=== PATIENT | male | born 1990 | race Caucasian/White ===

== ENCOUNTER 2022-09-02 22:41 | Inpatient (IN) | payer BC, OTHER ==
[~2022-09-02] VITALS: Ht 182.9 cm; Wt 85.3 kg
[2022-09-03 00:40] LABS: Eosinophils # (auto) 0 10 ^3/uL (0-0.8); Eosinophils % (auto) 0.2 % (0.0-7.0); Lymphocytes # (auto) 2.7 10 ^3/uL (0.4-5.4); Monocytes # (auto) 0.5 10 ^3/uL (0-1.3); Nucleated Red Blood Cells % 0.1 %
[2022-09-03 00:42] LABS: Basophils # (auto) 0.1 10 ^3/uL (0-0.2); Basophils % (auto) 0.4 % (0.0-2.0); Hemoglobin 16.1 g/dL (13.5-17.5); Lymphocytes % (auto) 14.3 % (10.0-50.0); Mean Corpuscular Hemoglobin 29.9 pg (28.0-32.0); Mean Corpuscular Volume 106.7 fL (80.0-100.0); Monocytes % (auto) 2.4 % (0.0-12.0); Neutrophils # (auto) 15.6 10 ^3/uL (1.6-8.6); Neutrophils % (auto) 82.7 % (37.0-80.0); Red Blood Cells 5.39 10^6/uL (4.5-5.90); Red Cell Distribution Width 16.2 % (11.8-14.3); White Blood Cell 18.8 10^3/uL (4.4-10.8)
[2022-09-03 00:46] LABS: Hematocrit 57.6 % (41.0-53.0)
[2022-09-03 01:00] LABS: Albumin 4.1 g/dL (3.4-5.0); Calcium 9.5 mg/dL (8.5-10.1); Magnesium 2.8 mg/dL (1.6-2.6)
[2022-09-03 01:02] LABS: Bilirubin, Total 0.5 mg/dL (0.2-1.0); Total Protein 8.7 g/dL (6.4-8.2)
[2022-09-03 01:10] LABS: BUN/Creatinine Ratio 5.6; Potassium 6.1 mmol/L (3.5-5.1)
[2022-09-03] MEDS ORDERED: SODIUM CHLORIDE 0.9% 2,450 ML IV ONE (01:15)
[2022-09-03] MEDS ORDERED: SODIUM CHLORIDE 0.9% 1,000 ML IV ONE (01:15)
[2022-09-03] MEDS ORDERED: DEXTROSE (50%) 50ML SYRG IV PRN ×2 (01:15→01:45)
[2022-09-03] MEDS ORDERED: PHENYLEPHRINE IV 250 ML IV ONE (01:15)
[2022-09-03] MEDS ORDERED: INSULIN LANTUS (GLARGINE) 1 /0.01ml (100units/ml) SC ONE (01:15)
[2022-09-03] MEDS ORDERED: InsuLIN R (HUMAN) 100 UNITS in SODIUM CHL 0.9% 99 ML IV SCH (01:15)
[2022-09-03] MEDS ORDERED: InsuLIN REG 1unit/0.01ml Soln (100units/ml) ONE ×2 (01:28→01:42)
[2022-09-03] MEDS ORDERED: cefTRIAXone 1GM/50ML D5W 50 ML IV ONE (01:30)
[2022-09-03 01:35] LABS: Lactic Acid w/Reflex 7.5 mmol/L (0.4-2.0)
[2022-09-03] MEDS ORDERED: InsuLIN REG 1unit/0.01ml Soln (100units/ml) IV ONE (01:45)
[2022-09-03] MEDS: InsuLIN R (HUMAN) 100 UNITS in SODIUM CHL 0.9% 99 ML IV SCH ×3 (01:46→03:35)
[2022-09-03] MEDS ORDERED: SODIUM BICARBONATE 8.4 % INJ 50ML VIAL IV ONE ×3 (01:56→03:01)
[2022-09-03] MEDS ORDERED: SODIUM BICARBONATE 50ML VIAL 50 ML in SOD CHL 0.45% 1,000 ML IV ONE (02:00)
[2022-09-03] MEDS: SODIUM CHLORIDE 0.9% 1,000 ML IV SCH ×4 (02:15→03:45)
[2022-09-03] MEDS: ACCU-CHEK COMFORT CURVE STRIP VI SCH ×17 (03:00→22:28)
[2022-09-03] MEDS ORDERED: NITROGLYCERIN 0.4 MG SL TAB SL PRN (03:45)
[2022-09-03] MEDS ORDERED: MORPHINE SULFATE INJ 2 MG/ml SYRG IV PRN ×2 (03:45)
[2022-09-03 03:47] LABS: Albumin 3.2 g/dL (3.4-5.0); Calcium 8.2 mg/dL (8.5-10.1); Potassium 5.5 mmol/L (3.5-5.1)
[2022-09-03 03:50] LABS: Bilirubin, Total 0.5 mg/dL (0.2-1.0); Total Protein 6.8 g/dL (6.4-8.2)
[2022-09-03 03:59] LABS: BUN/Creatinine Ratio 7.5
[2022-09-03 04:38] LABS: Urine Bacteria FEW /hpf (None Seen); Urine Blood TRACE /uL (Negative); Urine Hyaline Cast FEW /lpf (0 - 2); Urine Mucus FEW (None Seen); Urine Specific Gravity 1.021 (1.001-1.035); Urine WBC 6 /hpf (0 - 3)
[2022-09-03 04:45] LABS: Alcohol, Urine < 3.0 mg/dL (0-10); Amphetamine Screen, Urine NEGATIVE (NEGATIVE); Barbiturate Scree,Urine NEGATIVE (NEGATIVE); Benzodiazephine Screen, Urine NEGATIVE (NEGATIVE); Cannabinoid Screen, Urine NEGATIVE (NEGATIVE); Cocaine Screen, Urine NEGATIVE (NEGATIVE); Opiate Scree,Urine NEGATIVE (NEGATIVE); Phencyclidine Screen, Urine NEGATIVE (NEGATIVE)
[2022-09-03] MEDS ORDERED: SODIUM CHLORIDE 0.9% 1,000 ML IV SCH ×4 (05:15→07:45)
[2022-09-03] MEDS: SODIUM BICARBONATE 50ML VIAL 100 ML in SOD CHL 0.45% 1,000 ML IV SCH ×2 (05:45→20:06)
[2022-09-03 07:57] LABS: BUN/Creatinine Ratio 8.6; Calcium 9.2 mg/dL (8.5-10.1); Potassium 4.4 mmol/L (3.5-5.1)
[2022-09-03] MEDS: D5W/SOD CHL 0.45% 1,000 ML IV SCH ×2 (10:19→20:06)
[2022-09-03] MEDS: PANTOPRAZOLE 40 MG/10 ML VIAL INJ IV SCH (11:27)
[2022-09-03 13:05] LABS: Hematocrit 44.5 % (41.0-53.0); Hemoglobin 14.1 g/dL (13.5-17.5); Mean Corpuscular Hgb Conc. 31.7 g/dL (32.0-36.0); Mean Corpuscular Volume 94.7 fL (80.0-100.0); Red Blood Cells 4.69 10^6/uL (4.5-5.90); Red Cell Distribution Width 13.9 % (11.8-14.3); White Blood Cell 22.5 10^3/uL (4.4-10.8)
[2022-09-03 13:11] LABS: Basophils % (manual) 0 (0.0-2.0); Blast Cells 0; Eosinophils % (manual) 0 (0-7); Metamyelocytes % 0; Myelocytes % 0; Promyelocytes % 0; Reactive Lymphocytes 0
[2022-09-03 13:31] LABS: BUN/Creatinine Ratio 9.7; Calcium 8.9 mg/dL (8.5-10.1); Phosphorus 2.3 mg/dL (2.5-4.90); Potassium 3.9 mmol/L (3.5-5.1)
[2022-09-03 14:16] LABS: Band Neutrophils % (manual) 19; Lymphocytes % (manual) 4 (10.0-50.0); Monocytes % (manual) 3 (0-12)
[2022-09-03] MEDS ORDERED: POTASSIUM PHOSPHATE 22 MEQ in SODIUM CHL 0.9% 100 ML IV ONE (16:15)
[2022-09-03] MEDS: ONDANSETRON HCL 4 MG/2 ML VIAL IV PRN (18:56)
[2022-09-03 20:00] LABS: BUN/Creatinine Ratio 10.3; Calcium 9.1 mg/dL (8.5-10.1); Potassium 3.2 mmol/L (3.5-5.1)
[2022-09-04] MEDS: ACCU-CHEK COMFORT CURVE STRIP VI SCH ×9 (00:16→23:34)
[2022-09-04] MEDS: ONDANSETRON HCL 4 MG/2 ML VIAL IV PRN ×2 (03:47→08:28)
[2022-09-04] MEDS ORDERED: DEXTROSE (50%) 50ML SYRG IV PRN (05:45)
[2022-09-04] MEDS ORDERED: SODIUM CHLORIDE 0.9% 500 ML IV ONE (05:45)
[2022-09-04 07:10] LABS: Calcium 8.8 mg/dL (8.5-10.1); Potassium 3.3 mmol/L (3.5-5.1)
[2022-09-04 07:14] LABS: BUN/Creatinine Ratio 10.9; Bilirubin, Total 0.4 mg/dL (0.2-1.0); Total Protein 6.3 g/dL (6.4-8.2)
[2022-09-04 07:24] LABS: Basophils # (auto) 0.1 10 ^3/uL (0-0.2); Basophils % (auto) 0.5 % (0.0-2.0); Eosinophils # (auto) 0 10 ^3/uL (0-0.8); Eosinophils % (auto) 0.1 % (0.0-7.0); Hematocrit 38.4 % (41.0-53.0); Hemoglobin 13.1 g/dL (13.5-17.5); Lymphocytes # (auto) 1.7 10 ^3/uL (0.4-5.4); Lymphocytes % (auto) 13.1 % (10.0-50.0); Mean Corpuscular Hemoglobin 31.7 pg (28.0-32.0); Mean Corpuscular Volume 93.3 fL (80.0-100.0); Monocytes # (auto) 0.7 10 ^3/uL (0-1.3); Monocytes % (auto) 5.3 % (0.0-12.0); Neutrophils # (auto) 10.4 10 ^3/uL (1.6-8.6); Nucleated Red Blood Cells % 0.1 %; Red Blood Cells 4.11 10^6/uL (4.5-5.90); Red Cell Distribution Width 13.7 % (11.8-14.3); White Blood Cell 12.9 10^3/uL (4.4-10.8)
[2022-09-04] MEDS: SODIUM BICARBONATE 50ML VIAL 100 ML in SOD CHL 0.45% 1,000 ML IV SCH (07:54)
[2022-09-04] MEDS: InsuLIN REG 1unit/0.01ml Soln (100units/ml) SC SCH ×5 (08:10→23:34)
[2022-09-04] MEDS: INSULIN LANTUS (GLARGINE) 1 /0.01ml (100units/ml) SC SCH (10:07)
[2022-09-04] MEDS: PANTOPRAZOLE 40 MG/10 ML VIAL INJ IV SCH (10:11)
[2022-09-04] MEDS ORDERED: dilTIAZem HCL 60 MG TAB PO SCH (14:00)
[2022-09-04] MEDS ORDERED: ERGOCALCIFEROL 50,000 UNIT(1.25MG) CAP PO SCH (16:15)
[2022-09-04 16:20] VITALS: BP 135/78
[2022-09-04 16:32] VITALS: BP 135/78
[2022-09-04] MEDS: POTASSIUM CHL 20MEQ/100ML 100 ML IV SCH ×3 (16:39→21:27)
[2022-09-04 16:53] VITALS: BP 135/78
[2022-09-04] MEDS ORDERED: LEVO100T8 PO (17:02)
[2022-09-04] MEDS ORDERED: GABA-339 PO (17:02)
[2022-09-04] MEDS ORDERED: CETI1TAB36 PO (17:02)
[2022-09-04] MEDS ORDERED: ATOR20TA50 PO (17:02)
[2022-09-04] MEDS ORDERED: INSLISPI SC (17:02)
[2022-09-04 17:28] LABS: Magnesium 2.1 mg/dL (1.6-2.6); Phosphorus 2.5 mg/dL (2.5-4.90)
[2022-09-04] MEDS: SODIUM BICARBONATE 50ML VIAL 75 ML in D5W 5% 1,000 ML IV SCH (17:38)
[2022-09-04] MEDS: METOCLOPRAMIDE HCL 5MG/ml INJ 2ml VIAL IV SCH (21:43)
[2022-09-04 22:00] VITALS: BP 120/74
[2022-09-05] MEDS: ACCU-CHEK COMFORT CURVE STRIP VI SCH ×3 (04:17→12:00)
[2022-09-05] MEDS: InsuLIN REG 1unit/0.01ml Soln (100units/ml) SC SCH ×3 (04:26→12:32)
[2022-09-05 05:00] VITALS: BP 115/71
[2022-09-05 06:01] LABS: BUN/Creatinine Ratio 17.7; Calcium 8.5 mg/dL (8.5-10.1); Potassium 3.1 mmol/L (3.5-5.1)
[2022-09-05] MEDS: SODIUM BICARBONATE 50ML VIAL 75 ML in D5W 5% 1,000 ML IV SCH (06:23)
[2022-09-05] MEDS: METOCLOPRAMIDE HCL 5MG/ml INJ 2ml VIAL IV SCH (06:24)
[2022-09-05] MEDS ORDERED: LEVOTHYROXINE SODIUM 25 MCG TAB PO SCH (07:00)
[2022-09-05 08:00] VITALS: BP 125/65
[2022-09-05] MEDS ORDERED: POTASSIUM CHL 20 Meq TABLET PO ONE (08:15)
[2022-09-05 08:31] VITALS: BP 125/65
[2022-09-05] MEDS: INSULIN LANTUS (GLARGINE) 1 /0.01ml (100units/ml) SC SCH (08:49)
[2022-09-05] MEDS ORDERED: INSLISPI SC (09:43)
[2022-09-05] MEDS ORDERED: ERGO1CAP23 PO (09:43)
[2022-09-05] MEDS ORDERED: INSLANTI SC (09:43)
[2022-09-05] MEDS ORDERED: LEVO100T8 PO (09:43)
[2022-09-05] MEDS ORDERED: LEVO500T31 PO (09:48)
[2022-09-05] MEDS ORDERED: levoFLOXacin 500 MG TAB PO ONE (10:00)
[2022-09-05 10:35] VITALS: BP 125/65
[2022-09-05 12:50] VITALS: BP 121/73
[2022-09-06 14:47] LABS: Hepatitis C Antibody Negative (Negative)
== END 2022-09-05 13:00 | disposition home or self-care (01) | DRG 871 ==
LOC: EDBD 22:41 → ER 22:45 → OVERFLOW 09-03 03:45 → TELE-WESTW 09-04 16:08
PROVIDERS: ADMIT Nurse Practitioner; ATTEND Internal Medicine
DX: A41.9 Sepsis, unspecified organism (principal); E10.10 Type 1 diabetes mellitus with ketoacidosis without coma; G93.41 Metabolic encephalopathy; N17.0 Acute kidney failure with tubular necrosis; N39.0 Urinary tract infection, site not specified; E87.5 Hyperkalemia; E03.9 Hypothyroidism, unspecified; E55.9 Vitamin D deficiency, unspecified; Z88.0 Allergy status to penicillin; Z20.822 Contact with and (suspected) exposure to COVID-19
CPT/HCPCS: 36415; 36600; 71045; 80048; 80053; 80307; 81001; 82010; 82306; 82805; 82962; 83036; 83605; 83690; 83735; 83930; 84100; 84439; 84443; 84484; 85007; 85025; 85027; 86803; 87081; 87340; 87426; 93005; 96361; 96365; 96375; 99291; C9113; G0378; J0696; J1815; J2405; J3480

== ENCOUNTER 2023-05-20 04:57 | Inpatient (IN) | payer BC, OTHER ==
[~2023-05-20] VITALS: Ht 182.9 cm; Wt 78.9 kg
[~2023-05-20 04:57] MED LIST: ATOR20TA50 PO; ERGO1CAP23 PO; INSLANTI SC; INSLISPI SC; LEVO100T8 PO; LEVO500T31 PO
[2023-05-20] MEDS ORDERED: LACTATED RINGER'S 1,000 ML IV ONE (05:30)
[2023-05-20] MEDS ORDERED: InsuLIN REG 1unit/0.01ml Soln (100units/ml) IV ONE (05:30)
[2023-05-20] MEDS ORDERED: SODIUM CHLORIDE 0.9% 1,000 ML IV ONE ×3 (05:45→14:00)
[2023-05-20 06:09] LABS: Alanine Aminotransferase 53 U/L (7-40); Albumin 5.2 g/dL (3.2-4.8); Alkaline Phosphatase 160 U/L (46-116); Anion Gap 22.00001 (5-15); Aspartate Aminotransferase 52 U/L (13-40); Bilirubin, Total 0.6 mg/dL (0.2-1.0); Blood Urea Nitrogen 18 mg/dL (9-23); Calcium 10.1 mg/dL (8.5-10.1); Chloride 98 mmol/L (98-107); Magnesium 2.3 mg/dL (1.6-2.6); Sodium 130 mmol/L (136-145); Total Protein 7.9 g/dL (5.7-8.2)
[2023-05-20 06:21] LABS: Basophils # (auto) 0.1 10 ^3/uL (0-0.2); Eosinophils # (auto) 0.1 10 ^3/uL (0-0.8); Monocytes # (auto) 0.4 10 ^3/uL (0-1.3); Monocytes % (auto) 2.7 % (0.0-12.0); Nucleated Red Blood Cells % 0.2 %; Red Cell Distribution Width 14.5 % (11.8-14.3)
[2023-05-20 06:29] LABS: Basophils % (auto) 0.5 % (0.0-2.0); Eosinophils % (auto) 0.4 % (0.0-7.0); Hematocrit 46.7 % (41.0-53.0); Hemoglobin 14.5 g/dL (13.5-17.5); Lymphocytes # (auto) 2.4 10 ^3/uL (0.4-5.4); Lymphocytes % (auto) 15.9 % (10.0-50.0); Mean Corpuscular Hemoglobin 32.2 pg (28.0-32.0); Neutrophils # (auto) 12.3 10 ^3/uL (1.6-8.6); Neutrophils % (auto) 80.5 % (37.0-80.0); Red Blood Cells 4.49 10^6/uL (4.5-5.90); White Blood Cell 15.2 10^3/uL (4.4-10.8)
[2023-05-20 06:33] VITALS: PULSE 113; RESP 19; O2SAT 100
[2023-05-20 06:35] LABS: Carbon Dioxide < 10.0 mmol/L (20-30); Glucose 663 mg/dL (74-106); Potassium 5.7 mmol/L (3.5-5.1)
[2023-05-20 06:44] LABS: Urine Bacteria NONE SEEN /hpf (None Seen); Urine Blood Negative /uL (Negative); Urine Clarity Clear (Clear); Urine Color Colorless (Yellow); Urine Protein, UAD TRACE (Negative); Urine Specific Gravity 1.025 (1.001-1.035); Urine Urobilinogen Normal (Negative); Urine WBC 1 /hpf (0 - 3)
[2023-05-20] MEDS ORDERED: DEXTROSE (50%) 50ML SYRG IV PRN ×2 (07:00→22:15)
[2023-05-20] MEDS ORDERED: INSULIN LANTUS (GLARGINE) 1 /0.01ml (100units/ml) SC ONE ×2 (07:00→20:15)
[2023-05-20] MEDS ORDERED: InsuLIN R (HUMAN) 100 UNITS in SODIUM CHL 0.9% 99 ML IV SCH (07:00)
[2023-05-20 07:35] VITALS: PULSE 111; RESP 20; O2SAT 95
[2023-05-20] MEDS ORDERED: ACETAMINOPHEN 325 MG TAB PO ONE (07:45)
[2023-05-20] MEDS ORDERED: ONDANSETRON HCL 4 MG/2 ML VIAL IV ONE (07:45)
[2023-05-20] MEDS: ACCU-CHEK COMFORT CURVE STRIP VI SCH ×11 (07:55→23:41)
[2023-05-20] MEDS ORDERED: ACETAMINOPHEN 325 MG TAB PO PRN (09:45)
[2023-05-20] MEDS ORDERED: ONDANSETRON HCL 4 MG/2 ML VIAL IV PRN (09:45)
[2023-05-20] MEDS ORDERED: D5W/SOD CHLO 0.9% 1,000 ML IV SCH (09:45)
[2023-05-20 10:10] LABS: Potassium 5.1 mmol/L (3.5-5.1); Sodium 141 mmol/L (136-145)
[2023-05-20 10:11] LABS: Anion Gap 20.00001 (5-15)
[2023-05-20 10:12] LABS: Calcium 9.2 mg/dL (8.5-10.1)
[2023-05-20 10:17] LABS: BUN/Creatinine Ratio 10.3 (10.0-20.0); Blood Urea Nitrogen 12 mg/dL (9-23); Magnesium 2.1 mg/dL (1.6-2.6)
[2023-05-20 10:23] LABS: Chloride 111 mmol/L (98-107); Glucose 261 mg/dL (74-106)
[2023-05-20 10:25] LABS: Carbon Dioxide < 10.0 mmol/L (20-30)
[2023-05-20] MEDS: SODIUM CHLORIDE 0.9% 1,000 ML IV SCH ×2 (10:35→20:15)
[2023-05-20 12:20] LABS: Chloride 114 mmol/L (98-107); Sodium 142 mmol/L (136-145)
[2023-05-20 12:21] LABS: Anion Gap 17.7 (5-15); Carbon Dioxide 10.3 mmol/L (20-30)
[2023-05-20 12:22] LABS: Calcium 8.7 mg/dL (8.5-10.1)
[2023-05-20 12:26] LABS: BUN/Creatinine Ratio 11.9 (10.0-20.0); Blood Urea Nitrogen 12 mg/dL (9-23); Glucose 174 mg/dL (74-106)
[2023-05-20 18:42] LABS: Chloride 113 mmol/L (98-107); Potassium 4.7 mmol/L (3.5-5.1); Sodium 141 mmol/L (136-145)
[2023-05-20 18:44] LABS: Calcium 8.7 mg/dL (8.7-10.4)
[2023-05-20 18:48] LABS: BUN/Creatinine Ratio 8.6 (10.0-20.0); Blood Urea Nitrogen 8 mg/dL (9-23); Glucose 162 mg/dL (74-106)
[2023-05-20 19:25] VITALS: PULSE 89; RESP 14; O2SAT 99
[2023-05-20 23:00] VITALS: PULSE 86; RESP 18; O2SAT 96
[2023-05-20] MEDS: InsuLIN REG 1unit/0.01ml Soln (100units/ml) SC SCH (23:42)
[2023-05-21 00:49] LABS: Chloride 111 mmol/L (98-107); Sodium 139 mmol/L (136-145)
[2023-05-21 00:50] LABS: Anion Gap 13.2 (5-15); Carbon Dioxide 14.8 mmol/L (20-30)
[2023-05-21 00:51] LABS: Calcium 8.7 mg/dL (8.7-10.4)
[2023-05-21 00:55] LABS: BUN/Creatinine Ratio 6.9 (10.0-20.0); Blood Urea Nitrogen 6 mg/dL (9-23); Glucose 223 mg/dL (74-106)
[2023-05-21] MEDS: ACCU-CHEK COMFORT CURVE STRIP VI SCH ×3 (04:47→12:04)
[2023-05-21] MEDS: InsuLIN REG 1unit/0.01ml Soln (100units/ml) SC SCH ×3 (04:47→12:05)
[2023-05-21] MEDS: SODIUM CHLORIDE 0.9% 1,000 ML IV SCH (05:45)
[2023-05-21 07:00] LABS: Chloride 110 mmol/L (98-107); Potassium 3.3 mmol/L (3.5-5.1); Sodium 141 mmol/L (136-145)
[2023-05-21 07:01] LABS: Anion Gap 12.5 (5-15); Carbon Dioxide 18.5 mmol/L (20-30)
[2023-05-21 07:02] LABS: Calcium 8.9 mg/dL (8.5-10.1)
[2023-05-21 07:07] LABS: BUN/Creatinine Ratio 10.3 (10.0-20.0); Blood Urea Nitrogen 8 mg/dL (9-23)
[2023-05-21 07:15] VITALS: PULSE 77; RESP 15; O2SAT 99
[2023-05-21 07:19] LABS: Glucose 122 mg/dL (74-106)
[2023-05-21] MEDS ORDERED: POTASSIUM CHL 20 Meq TABLET PO ONE (09:00)
[2023-05-21] MEDS ORDERED: SODIUM CHLORIDE 0.9% 1,000 ML IV ONE (09:45)
[2023-05-21] MEDS ORDERED: INSLISPI SC (09:46)
[2023-05-21] MEDS ORDERED: INSLANTI SC (09:46)
[2023-05-21] MEDS ORDERED: INSULIN LANTUS (GLARGINE) 1 /0.01ml (100units/ml) SC SCH ×2 (10:00)
[2023-05-21 12:07] LABS: Basophils # (auto) 0 10 ^3/uL (0-0.2); Basophils % (auto) 0.5 % (0.0-2.0); Eosinophils # (auto) 0.2 10 ^3/uL (0-0.8); Eosinophils % (auto) 3.1 % (0.0-7.0); Hematocrit 37.8 % (41.0-53.0); Hemoglobin 12.1 g/dL (13.5-17.5); Lymphocytes % (auto) 41.8 % (10.0-50.0); Mean Corpuscular Hemoglobin 31.5 pg (28.0-32.0); Mean Corpuscular Hgb Conc. 32.1 g/dL (32.0-36.0); Mean Corpuscular Volume 98.2 fL (80.0-100.0); Monocytes # (auto) 0.4 10 ^3/uL (0-1.3); Monocytes % (auto) 5.9 % (0.0-12.0); Neutrophils # (auto) 3.5 10 ^3/uL (1.6-8.6); Neutrophils % (auto) 48.7 % (37.0-80.0); Nucleated Red Blood Cells % 0.1 %; Red Blood Cells 3.85 10^6/uL (4.5-5.90); Red Cell Distribution Width 14.3 % (11.8-14.3); White Blood Cell 7.2 10^3/uL (4.4-10.8)
[2023-05-21 12:40] LABS: Chloride 108 mmol/L (98-107); Potassium 3.8 mmol/L (3.5-5.1); Sodium 138 mmol/L (136-145)
[2023-05-21 12:41] LABS: Anion Gap 10.6 (5-15); Calcium 8.7 mg/dL (8.5-10.1); Carbon Dioxide 19.4 mmol/L (20-30)
[2023-05-21 12:46] LABS: BUN/Creatinine Ratio 9.5 (10.0-20.0); Blood Urea Nitrogen 7 mg/dL (9-23)
[2023-05-21 12:52] LABS: Glucose 233 mg/dL (74-106)
[2023-05-21 13:00] VITALS: PULSE 88; RESP 15; O2SAT 94
[2023-05-21 14:32] VITALS: BP 120/81; PULSE 73; RESP 14; TEMP 98.7; O2SAT 95
[2023-05-22] MEDS ORDERED: LEVOTHYROXINE SODIUM 50 MCG TAB PO SCH (07:00)
== END 2023-05-21 14:37 | disposition home health service (06) | DRG 638 ==
LOC: ER 04:57 → TELE 10:48
PROVIDERS: ADMIT Internal Medicine; ATTEND Internal Medicine
DX: E10.10 Type 1 diabetes mellitus with ketoacidosis without coma (principal); N17.9 Acute kidney failure, unspecified; D72.829 Elevated white blood cell count, unspecified; E03.9 Hypothyroidism, unspecified; E78.5 Hyperlipidemia, unspecified; E87.5 Hyperkalemia; Z82.49 Family history of ischemic heart disease and other diseases of the circulatory system; Z88.0 Allergy status to penicillin; Z83.3 Family history of diabetes mellitus; Z91.048 Other nonmedicinal substance allergy status
CPT/HCPCS: 36415; 36600; 80048; 80053; 81001; 82010; 82805; 82962; 83690; 83735; 84484; 85025; 93005; 96365; 96372; 96375; 99291; G0378; J1815; J2405

== ENCOUNTER 2023-07-29 23:51 | Inpatient (IN) | payer OTHER ==
[~2023-07-29] VITALS: Ht 182.9 cm; Wt 75.0 kg
[~2023-07-29 23:51] MED LIST changes: -LEVO500T31 PO
[2023-07-30] VITALS (18 sets, daily range): BP systolic 106–132; BP diastolic 60–78; PULSE 98–123; RESP 12–21; TEMP 98.5–99; O2SAT 96–100
[2023-07-30 00:38] LABS: Basophils # (auto) 0.1 10 ^3/uL (0-0.2); Basophils % (auto) 0.7 % (0.0-2.0); Eosinophils # (auto) 0 10 ^3/uL (0-0.8); Eosinophils % (auto) 0.3 % (0.0-7.0); Hematocrit 42.6 % (41.0-53.0); Hemoglobin 13.4 g/dL (13.5-17.5); Lymphocytes # (auto) 1.8 10 ^3/uL (0.4-5.4); Lymphocytes % (auto) 18.4 % (10.0-50.0); Mean Corpuscular Hemoglobin 31.6 pg (28.0-32.0); Mean Corpuscular Hgb Conc. 31.4 g/dL (32.0-36.0); Mean Corpuscular Volume 100.6 fL (80.0-100.0); Monocytes # (auto) 0.3 10 ^3/uL (0-1.3); Monocytes % (auto) 3.2 % (0.0-12.0); Neutrophils # (auto) 7.8 10 ^3/uL (1.6-8.6); Neutrophils % (auto) 77.4 % (37.0-80.0); Nucleated Red Blood Cells % 0.1 %; Red Blood Cells 4.23 10^6/uL (4.5-5.90); White Blood Cell 10.1 10^3/uL (4.4-10.8)
[2023-07-30 00:40] LABS: Urine Bacteria NONE SEEN /hpf (None Seen); Urine Blood Negative /uL (Negative); Urine Clarity Clear (Clear); Urine Mucus FEW (None Seen); Urine Protein, UAD Negative (Negative); Urine Specific Gravity 1.027 (1.001-1.035); Urine Urobilinogen Normal (Negative); Urine WBC <1 /hpf (0 - 3)
[2023-07-30] MEDS ORDERED: LACTATED RINGER'S 3,000 ML IV ONE (00:45)
[2023-07-30] MEDS ORDERED: ONDANSETRON HCL 4 MG/2 ML VIAL IV ONE (00:45)
[2023-07-30 00:54] LABS: Alanine Aminotransferase 39 U/L (7-40); Alkaline Phosphatase 165 U/L (46-116); Anion Gap 20.00001 (5-15); Aspartate Aminotransferase 39 U/L (13-40); BUN/Creatinine Ratio 7.9 (10.0-20.0); Blood Urea Nitrogen 10 mg/dL (9-23); Calcium 9.6 mg/dL (8.7-10.4); Chloride 102 mmol/L (98-107); Sodium 132 mmol/L (136-145)
[2023-07-30 00:55] LABS: Bilirubin, Total 0.9 mg/dL (0.2-1.0); Total Protein 7.8 g/dL (5.7-8.2)
[2023-07-30 01:07] LABS: Carbon Dioxide < 10 mmol/L (20-30); Glucose 592 mg/dL (74-106); Potassium 5.7 mmol/L (3.5-5.1)
[2023-07-30 01:09] LABS: Urine Color STRAW (Yellow)
[2023-07-30] MEDS ORDERED: SODIUM BICARBONATE 8.4 % INJ 50ML VIAL IV ONE (02:30)
[2023-07-30] MEDS ORDERED: DEXTROSE (50%) 50ML SYRG IV PRN (02:30)
[2023-07-30] MEDS: ACCU-CHEK COMFORT CURVE STRIP VI SCH ×15 (03:00→23:57)
[2023-07-30] MEDS: INSULIN DRIP 100 UNIT/100ML 100 ML IV SCH ×5 (03:48→17:56)
[2023-07-30] MEDS ORDERED: CALCIUM GLUC 1,000mg/50ml-NS 50 ML IV ONE (07:15)
[2023-07-30] MEDS ORDERED: ACETAMINOPHEN 325 MG TAB PO PRN (08:00)
[2023-07-30] MEDS: SODIUM CHLORIDE 0.9% 1,000 ML IV SCH ×2 (08:00→17:56)
[2023-07-30] MEDS ORDERED: ONDANSETRON HCL 4 MG/2 ML VIAL IV PRN (08:00)
[2023-07-30] MEDS: D5W/SOD CHLO 0.9% 1,000 ML IV SCH ×2 (08:30→17:56)
[2023-07-30 09:03] LABS: Potassium 4.5 mmol/L (3.5-5.1); Sodium 144 mmol/L (136-145)
[2023-07-30 09:04] LABS: Anion Gap 18 (5-15); Carbon Dioxide 13 mmol/L (20-30)
[2023-07-30 09:05] LABS: Calcium 9.5 mg/dL (8.5-10.1)
[2023-07-30 09:07] LABS: Chloride 113 mmol/L (98-107)
[2023-07-30 09:10] LABS: BUN/Creatinine Ratio 7.6 (10.0-20.0); Blood Urea Nitrogen 8 mg/dL (9-23)
[2023-07-30 09:18] LABS: Glucose 146 mg/dL (74-106)
[2023-07-30 12:58] LABS: Chloride 114 mmol/L (98-107); Potassium 4.5 mmol/L (3.5-5.1); Sodium 145 mmol/L (136-145)
[2023-07-30 12:59] LABS: Anion Gap 14 (5-15); Calcium 9.1 mg/dL (8.5-10.1); Carbon Dioxide 17 mmol/L (20-30)
[2023-07-30 13:04] LABS: BUN/Creatinine Ratio 5.7 (10.0-20.0); Blood Urea Nitrogen 6 mg/dL (9-23); Glucose 152 mg/dL (74-106)
[2023-07-30 18:30] LABS: Chloride 114 mmol/L (98-107); Potassium 4.1 mmol/L (3.5-5.1); Sodium 145 mmol/L (136-145)
[2023-07-30 18:31] LABS: Anion Gap 15 (5-15); Calcium 8.8 mg/dL (8.5-10.1); Carbon Dioxide 16 mmol/L (20-30)
[2023-07-30 18:36] LABS: BUN/Creatinine Ratio 6.3 (10.0-20.0); Blood Urea Nitrogen 6 mg/dL (9-23); Glucose 197 mg/dL (74-106)
[2023-07-30] MEDS ORDERED: ATORVASTATIN 20 MG TAB PO SCH (22:00)
[2023-07-31] VITALS (18 sets, daily range): BP systolic 113–136; BP diastolic 70–93; PULSE 77–106; RESP 11–40; TEMP 36.7; O2SAT 96–100
[2023-07-31 00:43] LABS: Chloride 116 mmol/L (98-107); Potassium 3.7 mmol/L (3.5-5.1); Sodium 145 mmol/L (136-145)
[2023-07-31 00:44] LABS: Anion Gap 10 (5-15); Carbon Dioxide 19 mmol/L (20-30)
[2023-07-31 00:45] LABS: Calcium 8.8 mg/dL (8.7-10.4)
[2023-07-31 00:49] LABS: Glucose 165 mg/dL (74-106)
[2023-07-31 00:50] LABS: BUN/Creatinine Ratio 6.3 (10.0-20.0); Blood Urea Nitrogen 6 mg/dL (9-23)
[2023-07-31] MEDS ORDERED: INSULIN LANTUS (GLARGINE) 1 /0.01ml (100units/ml) SC ONE (01:15)
[2023-07-31] MEDS ORDERED: DEXTROSE (50%) 50ML SYRG IV PRN (01:15)
[2023-07-31] MEDS: SODIUM CHLORIDE 0.9% 1,000 ML IV SCH ×2 (01:24→14:00)
[2023-07-31] MEDS: ACCU-CHEK COMFORT CURVE STRIP VI SCH ×7 (01:35→10:58)
[2023-07-31] MEDS: InsuLIN REG 1unit/0.01ml Soln (100units/ml) SC SCH ×3 (04:00→10:58)
[2023-07-31 04:38] LABS: Basophils # (auto) 0 10 ^3/uL (0-0.2); Basophils % (auto) 0.3 % (0.0-2.0); Eosinophils # (auto) 0.1 10 ^3/uL (0-0.8); Hematocrit 35.7 % (41.0-53.0); Hemoglobin 11.7 g/dL (13.5-17.5); Lymphocytes # (auto) 3.1 10 ^3/uL (0.4-5.4); Lymphocytes % (auto) 27.5 % (10.0-50.0); Mean Corpuscular Hgb Conc. 32.7 g/dL (32.0-36.0); Monocytes # (auto) 0.6 10 ^3/uL (0-1.3); Monocytes % (auto) 5.1 % (0.0-12.0); Neutrophils # (auto) 7.5 10 ^3/uL (1.6-8.6); Neutrophils % (auto) 66.1 % (37.0-80.0); Nucleated Red Blood Cells % 0.1 %; Red Blood Cells 3.76 10^6/uL (4.5-5.90); Red Cell Distribution Width 13.5 % (11.8-14.3); White Blood Cell 11.4 10^3/uL (4.4-10.8)
[2023-07-31 04:46] LABS: Chloride 114 mmol/L (98-107); Potassium 3.4 mmol/L (3.5-5.1); Sodium 144 mmol/L (136-145)
[2023-07-31 04:47] LABS: Anion Gap 10 (5-15); Calcium 8.5 mg/dL (8.7-10.4); Carbon Dioxide 20 mmol/L (20-30)
[2023-07-31 04:52] LABS: BUN/Creatinine Ratio 6.6 (10.0-20.0); Blood Urea Nitrogen 6 mg/dL (9-23); Glucose 142 mg/dL (74-106)
[2023-07-31] MEDS ORDERED: LEVOTHYROXINE SODIUM 50 MCG TAB PO SCH (07:00)
[2023-07-31] MEDS ORDERED: INSLISPI SC (09:26)
[2023-07-31] MEDS ORDERED: INSLANTI SC (09:26)
[2023-07-31] MEDS ORDERED: POTASSIUM CHL 20 Meq TABLET PO ONE (09:30)
== END 2023-07-31 18:38 | disposition left against medical advice (07) | DRG 638 ==
LOC: ER 23:51 → TELE 07-30 07:47 → DOU IN ICU 07-30 07:52 → ICU WEST 07-30 13:12 → DOU IN ICU 07-31 13:50
PROVIDERS: ADMIT Internal Medicine; ATTEND Internal Medicine
DX: E10.10 Type 1 diabetes mellitus with ketoacidosis without coma (principal); N17.9 Acute kidney failure, unspecified; E87.5 Hyperkalemia; E86.0 Dehydration; R00.0 Tachycardia, unspecified; E03.9 Hypothyroidism, unspecified; E78.5 Hyperlipidemia, unspecified; Z91.148 Patient's other noncompliance with medication regimen for other reason; Z88.0 Allergy status to penicillin; Z88.8 Allergy status to other drugs, medicaments and biological substances; Z79.899 Other long term (current) drug therapy; Z79.4 Long term (current) use of insulin; Z83.3 Family history of diabetes mellitus; Z91.199 Patient's noncompliance with other medical treatment and regimen due to unspecified reason; Z82.49 Family history of ischemic heart disease and other diseases of the circulatory system
CPT/HCPCS: 36415; 36600; 80048; 80053; 81001; 82010; 82805; 82962; 85025; 87081; 96361; 96365; 96375; 99291; G0378; J1815; J2405; J7042